=== PATIENT | female | born 1995 | race Two or more races ===

== ENCOUNTER 2022-04-13 09:25 | Inpatient (IN) | payer OTHER ==
[~2022-04-13] VITALS: Ht 157.5 cm; Wt 64.9 kg
[2022-04-13] MEDS ORDERED: PRENATAL + DHA1 EAC1 PO (12:05)
== END 2022-04-15 14:25 | disposition home or self-care (01) | DRG 807 ==
LOC: LDR 09:25 → OB/GYN 15:21
PROVIDERS: ADMIT Obstetrics & Gynecology; ATTEND Obstetrics & Gynecology
PROC: 10E0XZZ Delivery of Products of Conception, External Approach (ICD-10-PCS; principal; 2022-04-13)
PROC: 0KQM0ZZ Repair Perineum Muscle, Open Approach (ICD-10-PCS; 2022-04-13)
PROC: 4A1HXCZ Monitoring of Products of Conception, Cardiac Rate, External Approach (ICD-10-PCS; 2022-04-13)
DX: O70.1 Second degree perineal laceration during delivery (principal); Z37.0 Single live birth; Z3A.39 39 weeks gestation of pregnancy; Z20.822 Contact with and (suspected) exposure to COVID-19